=== PATIENT | male | born 1975 | race American Indian/Alaskan Native ===

== ENCOUNTER 2025-04-10 08:50 | Emergency (ER) | payer BC, OTHER ==
[2025-04-10] MEDS ORDERED: Sodium Chloride 0.9% 10 ML Syringe FLUSH PRN (09:15)
[2025-04-10 09:44] LABS: BASOPHILS PERCENT AUTO 0.4 % (0.0-1.0); EOSINOPHILS PERCENT AUTO 1.5 % (1.0-3.0); LYMPHOCYTES PERCENT AUTO 25.7 % (20.5-50.1); MONOCYTES PERCENT AUTO 11.2 % (2-8); NEUTROPHILS PERCENT AUTO 61.2 % (42.2-75.2); PLATELET COUNT,PLT 228 10^3/uL (150-450); RED BLOOD CELL COUNT 4.39 10^6/uL (4.6-6.2); WHITE BLOOD CELL COUNT,WBC 5.3 10^3/uL (5.0-10.0)
[2025-04-10 10:03] LABS: A/G RATIO 1.1; ALANINE AMINOTRANSFERASE,ALT 53 U/L (16-63); ASPARTATE AMNIOTRANSFERASE,AST 32 U/L (15-37); BILIRUBIN TOTAL 0.3 mg/dL (0.2-1.0); BLOOD UREA NITROGEN,BUN 15 mg/dL (7-18); CARBON DIOXIDE,CO2 29 mmol/L (21-32); CHLORIDE,CL 106 mmol/L (98-107); CREATININE 1.08 mg/dL (0.70-1.30); EST CRCL DRUG DOSING (CG) 98.31 mL/min; ESTIMATED GFR 85 mL/min (>=60); GLUCOSE RANDOM 103 mg/dL (70-99); POTASSIUM,K 4.1 mmol/L (3.5-5.1); PROTEIN TOTAL,TP 7.0 g/dL (6.4-8.2); SODIUM,NA 143 mmol/L (136-145)
== END 2025-04-10 10:53 ==
LOC: DL.ED 08:50
DX: K35.80 Unspecified acute appendicitis (principal)
CPT/HCPCS: 36415; 80053; 83690; 85025; 86140; 96374; 99284; J1335; 99285